=== PATIENT | female | born 1985 | race Caucasian/White ===

== ENCOUNTER 2019-01-31 16:04 | Emergency (ER) | payer MEDICARE ==
[~2019-01-31] VITALS: Ht 182.9 cm; Wt 97.9 kg
[2019-01-31 16:19] VITALS: BP 119/64
--- NOTE | 2019-01-31 17:07 | NUR ---
pt came up to nurses desk and said that he decided he didn't want to stay, that he would go buy chloraseptic. Attempted to get him to stay that the wait wasn't very long but pt. refused and left.
== END 2019-01-31 17:14 | disposition left against medical advice (07) ==
LOC: ER 16:05
DX: J02.9 Acute pharyngitis, unspecified (principal); Z53.21 Procedure and treatment not carried out due to patient leaving prior to being seen by health care provider

== ENCOUNTER 2019-01-31 18:08 | Emergency (ER) | payer SELFPAY ==
[~2019-01-31] VITALS: Ht 182.9 cm; Wt 97.7 kg
[2019-01-31 18:11] VITALS: BP 120/74
[2019-01-31] MEDS ORDERED: dexamethasone 4mg tablet PO ONE (20:40)
--- NOTE | 2019-01-31 21:06 | NUR ---
Pt is agitated due to wait times. Pt also eloped earilier today after waiting for a short amount of time. During the time of this note, pt has asked about lab results several times (x5) within a 45 min p/.
== END 2019-01-31 21:52 | disposition home or self-care (01) ==
LOC: ER 18:09
DX: J02.9 Acute pharyngitis, unspecified (principal); F17.210 Nicotine dependence, cigarettes, uncomplicated
CPT/HCPCS: 87081; 87880; 99283